=== PATIENT | female | born 1960 | race African-American/Black ===

== ENCOUNTER 2017-05-07 13:00 | Outpatient (RCR) | payer MEDICARE, OTHER ==
[~2017-05-07 13:00] MED LIST: AMLODIPINE BESYL5 MG ORAL; ASPIR-LOW81 MG ORAL; IBUPROFEN600 MG ORAL; LOSARTAN POTASS50 MG ORAL; PROPRANOLOL HCL80 M1 ORAL
== END 2017-05-15 | disposition home or self-care (01) ==
LOC: PTY 13:00
DX: M54.5 Low back pain (principal); M25.561 Pain in right knee; I10 Essential (primary) hypertension; M81.0 Age-related osteoporosis without current pathological fracture
CPT/HCPCS: 97110; 97140; 97162; G0283; G8978; G8979

== ENCOUNTER 2017-05-16 23:20 | Emergency (ER) | payer MEDICARE, OTHER ==
[~2017-05-16] VITALS: Ht 160 cm; Wt 89.4 kg
[2017-05-16 23:30] VITALS: BP 137/71
[2017-05-17] MEDS ORDERED: MECLIZINE HCL25 MG ORAL (00:52)
--- NOTE | 2017-05-17 00:52 | Emergency Room Report ---
History of Present Illness General Chief Complaint: Dizziness Source: Patient Present Illness HPI Is a 56-year-old female with no significant past medical history. She presents with chief complaint of dizziness and room spinning. His been on for over a month. Usually when she lay down. Her left side. Lyerly nauseous initially. No vomiting. Better now. No focal deficit. Had this problem before. No recent cough or cold. Allergies: Coded Allergies: No Known Allergies (Unverified , 11/28/14) Patient History Past Medical History: see triage record, old chart reviewed Past Surgical History: other Pertinent Family History: none Social History: Denies: smoking Now: No Immunizations: other Reviewed Nursing Documentation: PMH: Agreed, PSxH: Agreed Nursing Documentation-PMH Past Medical History: No History, Except For Hx Cardiac Problems: No - Migraines Hx Hypertension: Yes Hx Diabetes: Yes Review of Systems Eye: Denies: blurred vision, eye pain ENT: Denies: ear pain, nose congestion, throat swelling Respiratory: Denies: cough, shortness of breath Cardiovascular: Denies: chest pain, palpitations Gastrointestinal: Denies: abdominal pain, diarrhea, nausea, vomiting Musculoskeletal: Denies: back pain, joint pain Skin: Denies: rash Neurological: Denies: headache, numbness Endocrine: Denies: increased thirst, increased urine Hematologic/Lymphatic: Denies: easy bruising All Other Systems: negative except mentioned in HPI Physical Exam Vital Signs Date Time Temp Pulse Resp B/P Pulse Ox O2 Delivery O2 Flow Rate FiO2 05/16/17 23:25 98.2 71 15 143/87 100 Room Air vitals normal Sp02 EP Interpretation: reviewed, normal General Appearance: well appearing, no apparent distress, alert Head: normocephalic, atraumatic Eyes: bilateral eye EOMI, bilateral eye PERRL ENT: hearing grossly normal, normal pharynx Neck: full range of motion, supple, no meningismus Respiratory: chest non-tender, lungs clear, normal breath sounds Cardiovascular #1: regular rate, rhythm, no murmur Gastrointestinal: normal bowel sounds, non tender, no mass, no organomegaly, no bruit, non-distended Musculoskeletal: back normal, gait/station normal, normal range of motion Psychiatric: mood/affect normal Skin: warm/dry Medical Decision Making Diagnostic Impression: Primary Impression: Vertigo ER Course Patient with vertigo symptoms. No evidence of CVA or TIA. No evidence of vertebral basilar insufficiency. Patient felt better now. We'll discharge home. CT/MRI/US Diagnostic Results CT/MRI/US Diagnostic Results : Imaging Test Ordered: ct head Impression read by radiologist. Neg Last Vital Signs Date Time Temp Pulse Resp B/P Pulse Ox O2 Delivery O2 Flow Rate FiO2 05/16/17 23:30 98.2 67 25 137/71 100 Room Air Status: improved Disposition: HOME, SELF-CARE Condition: Stable Scripts Meclizine Hcl* (MECLIZINE*) 25 Mg Tablet 25 MG ORAL THREE TIMES A DAY, #21 TAB Prov: DAPHNE AZUL M.D. 05/17/17 Referrals: ANTOINE IYER (PCP) Patient Instructions: Vertigo Additional Instructions: followup with your DrYoung in 2-3 days. Return if worse. DAPHNE AZUL M.D. May 17, 2017 00:52
[2017-05-17 01:03] VITALS: BP 137/69
--- NOTE | 2017-05-17 09:19 | Diagnostic Imaging Report ---
Indication: Dizziness and headache Technique: Contiguous 5 mm thick transaxial imaging of the head obtained in a Siemens Sensation [address] scanner. Soft tissue and bone windows generated. Total Dose length Product (DLP): [address] Dose Index Volume (CTDIvol): 70.38 mGy Comparison: 11/28/14 Findings: The size and configuration of the cortical sulci, basal cisterns, and ventricles are within normal limits for age. There is no mass effect, midline shift, or edema identified. There is no evidence of acute hemorrhage or abnormal intra-axial or extra-axial fluid collections. The bones and soft tissues are unremarkable. Impression: No mass effect, edema or acute bleed. The CT scanner at [facility] is accredited by the [employer] and the scans are performed using dose optimization techniques as appropriate to a performed exam including Automatic Exposure control.
== END 2017-05-17 01:03 | disposition home or self-care (01) ==
LOC: EMR 23:46
DX: R42 Dizziness and giddiness (principal); E11.9 Type 2 diabetes mellitus without complications; I10 Essential (primary) hypertension
CPT/HCPCS: 70450; 99284

== ENCOUNTER 2017-05-26 14:40 | Outpatient (RCR) | payer MEDICARE, OTHER ==
[~2017-05-26 14:40] MED LIST changes: +MECLIZINE HCL25 MG ORAL
== END 2017-06-15 | disposition home or self-care (01) ==
LOC: PTY 14:40
DX: M54.5 Low back pain (principal); M25.561 Pain in right knee; G89.29 Other chronic pain; I10 Essential (primary) hypertension; M19.90 Unspecified osteoarthritis, unspecified site; M81.0 Age-related osteoporosis without current pathological fracture

== ENCOUNTER 2017-07-14 14:30 | Outpatient (RCR) | payer MEDICARE, OTHER | END 2017-07-16 | disposition home or self-care (01) | LOC: PTY 14:30 | DX: M54.5 Low back pain (principal); M25.561 Pain in right knee; G89.29 Other chronic pain; I10 Essential (primary) hypertension; M19.90 Unspecified osteoarthritis, unspecified site; M81.0 Age-related osteoporosis without current pathological fracture | CPT/HCPCS: 97110; 97140; G0283 ==

== ENCOUNTER 2017-08-12 13:07 | Outpatient (RCR) | payer MEDICARE, OTHER | END 2017-08-15 | disposition home or self-care (01) | LOC: PTY 13:07 | DX: M54.5 Low back pain (principal); M25.561 Pain in right knee; I10 Essential (primary) hypertension; M19.91 Primary osteoarthritis, unspecified site; M81.0 Age-related osteoporosis without current pathological fracture | CPT/HCPCS: 97110; 97140; G0283 ==